=== PATIENT | female | born 1960 | race Caucasian/White ===

== ENCOUNTER 2022-03-23 13:51 | Outpatient (REF) | payer MEDICAID, SELFPAY ==
--- NOTE | 2022-03-23 13:30 | ENDOMET_PTH ---
PATIENT: Ninoska Conte LOC: [facility] U#:[id number] AGE/SX: 61/F ROOM: RE03/23/[address]: Marsha Henderson : 1960 BED: DIS: 03/23/2022 SPEC #: [id number] RECD: 03/23/22 17:53 STATUS: DANILO REQ #: [id number] ZO: 03/23/22 13:[address]: Marsha Henderson DEPT: Surgical Specimen RECD BY: Annel Tong Tissues: 1 - ENDOMETRIUM BX/ERMIAS Procedures: GROSS AND MICRO LEVEL 4 Comments: [id number]
== END 2022-03-23 13:52 | disposition home or self-care (01) ==
LOC: LBN 13:51
PROVIDERS: Visit Provider Obstetrics & Gynecology Gynecology
DX: N85.8 Other specified noninflammatory disorders of uterus (principal)
CPT/HCPCS: 88305

== ENCOUNTER 2024-09-23 05:53 | Day surgery (SDC) | payer MEDICAID, SELFPAY ==
[2024-09-23 06:30] VITALS: BP 184/71; PULSE 57; RESP 16; TEMP 36.5; O2SAT 98
[2024-09-23] MEDS: Lactated Ringers 1,000 ML 80 ML IV (06:45)
[2024-09-23 06:50] VITALS: BP 172/64
--- NOTE | 2024-09-23 07:07 | HPE_ITS ---
Date of service: 09/23/24 Time of Service: 07:07 Assessment and Plan Assessment and plan (1) Renal calculus, left: Status: Acute Assessment and plan: We will plan to do ureteroscopy and holmium laser lithotripsy of her identified stone. We may be able to address all of her stones in 1 setting, but we may need a staged procedure in which we placed a ureteral stent have her return to the OR to address all remaining stone fragments. History of Present Illness History of Present Illness Chief Complaint: Left kidney stone Narrative: This is a 63-year-old woman who has a history of a left-sided kidney stone. She was previously treated with ureteroscopy and holmium laser lithotripsy for a 14 x 8 mm stone. She had a stent placed following the initial surgery. I do not have access to her stone analysis during today's visit. She was then identified as having a residual 6 mm stone in the renal pelvis she presents now for ureteroscopy and holmium laser lithotripsy of her residual stone fragment. Review of Systems Narrative: No fevers or chills No vision change or dysphasia Diabetes. No thyroid dysfunction No shortness of breath, cough or hemoptysis No chest pain or palpitations No nausea, vomiting, hepatitis, ulcers, jaundice Vertigo. No seizures, strokes or peripheral neuropathy No bleeding disorders or anemia No gout PFSH All Active Problems Postoperative nausea (Acute) Pelvic pressure in female (Acute) Renal calculus, left (Acute) Urinary incontinence (Acute) Frequent UTI (Acute) Urinary urgency (Acute) Increased endometrial stripe thickness (Acute) Vertigo of central origin (Acute) Type 2 diabetes mellitus without complication (Acute) Shoulder joint pain (Acute) Pelvic and perineal pain (Acute) Obstructive sleep apnea syndrome (Chronic) Obesity (Chronic) Nasal congestion (Acute) Midline cystocele (Acute) Other [facility] (current) drug therapy (Acute) Lack of energy (Acute) Hypertensive disorder (Chronic) Chest pain (Acute) Anemia (Chronic) Abdominal pain (Acute) History of recurrent UTIs (Acute) Surgical History History of cholecystectomy Hx of colonoscopy Social History Smoking/Tobacco Use Status: Never Second Hand Exposure: Yes Smoking risk assessment performed?: Yes Alcohol Intake: former Drug use: Never Substance use type: does not use Household members: spouse and children Housing: house Number of Children: 6 number of grandchildren: 1 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 [employer] What is your relationship status?: Panel score (0-1 are the most socially isolated patients): 1 Seatbelt use: always Additional Social history: UTAP Female Reproductive History Menstrual Age of Menarche: 10 control method: none Menopause type: natural (2016) History History Para 6 Hx # Term Pregnancies Multiple births Hx # Pregnancies Ectopic pregnancies AB induced Hx Number of Living Children 6 AB spontaneous Meds Allergies and Home Medications Allergies Allergy/AdvReac Type Severity Reaction Status Date / Time No Known Allergies Allergy Verified 09/23/24 06:34 Home Medications ?Medication ?Instructions ?Recorded ?Confirmed ?Type beta carotene 30 mg capsule 30 mg PO DAILY 07/23/24 09/23/24 History cholecalciferol (vitamin D3) 50 100 mcg PO DAILY 07/23/24 09/23/24 History mcg (2,000 unit) capsule coenzyme Q10 75 mg capsule (Ultra 75 mg PO DAILY 07/23/24 09/23/24 History CoQ10) metformin 500 mg tablet 1,000 mg PO DAILY 07/23/24 09/23/24 History omeprazole 20 mg capsule,delayed 20 mg PO HS 07/23/24 09/23/24 History release fluticasone propionate 50 1 spray intranasal BID PRN 09/20/24 09/23/24 History mcg/actuation nasal spray,suspension (24 Hour Allergy Relief) semaglutide 3 mg tablet (Rybelsus) 3 mg PO DAILY 09/23/24 09/23/24 History Exam Const General: cooperative Neck Neck: supple Resp Effort & Inspection: normal respiratory effort Auscultation: clear to auscultation bilaterally Cardio Rate: regular rate Rhythm: regular rhythm GI Palpation: soft and no masses Neuro General: patient alert, patient awake and patient oriented x3 Results Last Vital Signs Temp 36.5 C 09/23/24 06:30 Pulse 57 L 09/23/24 06:30 Resp 16 09/23/24 06:30 BP 172/64 H 09/23/24 06:50 Pulse Ox 98 09/23/24 06:30
--- NOTE | 2024-09-23 07:24 | W.ANESPRE ---
General Info Date of Service Date Performed: 09/23/24 Height: 5 ft 6.5 in Weight: 93.5 kg Body Mass Index (BMI): 32.8 Surgical Procedure: Operation Date: 09/23/24 07:40 Proposed Procedure Side Surgeon p Cystoscopy/Laser/Retrograde/Ureteroscopy/Stone Manipulation/ Possible Stent Left Justus Gibson MD Meds Allergies and Home Medications Allergies Allergy/AdvReac Type Severity Reaction Status Date / Time No Known Allergies Allergy Verified 09/23/24 06:34 Home Medication ?Medication ?Instructions ?Recorded beta carotene 30 mg capsule 30 mg PO DAILY 07/23/24 cholecalciferol (vitamin D3) 50 100 mcg PO DAILY 07/23/24 mcg (2,000 unit) capsule coenzyme Q10 75 mg capsule (Ultra 75 mg PO DAILY 07/23/24 CoQ10) metformin 500 mg tablet 1,000 mg PO DAILY 07/23/24 omeprazole 20 mg capsule,delayed 20 mg PO HS 07/23/24 release fluticasone propionate 50 1 spray intranasal BID PRN 09/20/24 mcg/actuation nasal spray,suspension (24 Hour Allergy Relief) semaglutide 3 mg tablet (Rybelsus) 3 mg PO DAILY 09/23/24 Current Visit Medications: Current Medications Generic Name Dose Route Start Last Admin Trade Name Freq PRN Reason Stop Dose Admin Ringer's Solution 1,000 mls @ 80 mls/hr 09/23/24 06:00 09/23/24 06:45 IV 09/23/24 23:59 80 mls/hr INFUSION KATHY Administration Ciprofloxacin 400 mg in 200 mls @ 200 mls/hr 09/23/24 06:00 Cipro I.V. IVPB 09/23/24 23:59 PREOP KATHY IV Miscellaneous Supplies 1 each 09/23/24 06:00 Iv Access IV 09/23/24 23:59 DIRECTED KATHY Sodium Chloride 0 ml 09/23/24 06:00 Normal Saline Flush 10 Ml Syr IV 09/23/24 23:59 PRN PRN Sodium Chloride 0 ml 09/23/24 06:00 Normal Saline 10 Ml Vial IJ 09/23/24 23:59 DIRECTED PRN Sterile Water 0 ml 09/23/24 06:00 Water,Injection,Sterile 10 Ml Vial IJ 09/23/24 23:59 DIRECTED PRN PFSH Active Problems Active Problems: Problem Status Onset Code Postoperative nausea Acute R11.0, Z98.890 Pelvic pressure in female Acute R10.2 Renal calculus, left Acute N20.0 Urinary incontinence Acute R32 Frequent UTI Acute N39.0 Urinary urgency Acute R39.15 Increased endometrial stripe thickness Acute R93.89 Vertigo of central origin Acute H81.4 Type 2 diabetes mellitus without complication Acute E11.9 Shoulder joint pain Acute M25.519 Pelvic and perineal pain Acute R10.2 Obstructive sleep apnea syndrome Chronic G47.33 Obesity Chronic E66.9 Nasal congestion Acute R09.81 Midline cystocele Acute N81.11 Other [facility] (current) drug therapy Acute Z79.899 Lack of energy Acute R53.83 Hypertensive disorder Chronic I10 Chest pain Acute R07.9 Anemia Chronic D64.9 Abdominal pain Acute R10.9 History of recurrent UTIs Acute Z87.440 Surgical History Surgical History History of cholecystectomy Hx of colonoscopy Tobacco Smoking/Tobacco Use Status: Never Second hand exposure: Yes Alcohol Alcohol Intake: former Substance Use Substance use: Never Substance use type: does not use Prental History History Para 6 Hx # Term Pregnancies Multiple births Hx # Pregnancies Ectopic pregnancies AB induced Hx Number of Living Children 6 AB spontaneous Vital Signs and Lab Results Vital Signs Most Recent Vital Signs in EMR: Most Recent Vital Signs Temp Pulse Resp BP Pulse Ox 36.5 C 57 L 16 172/64 H 98 09/23/24 06:30 09/23/24 06:30 09/23/24 06:30 09/23/24 06:50 09/23/24 06:30 Point of Care Results Point of Care Results: Finger Stick Blood Glucose 155 09/23/24 06:50 Lab Results Blood Type / Crossmatch: No Data to Display Complete Blood Count: No Data to Display Complete Metabolic Panel: No Data to Display Liver Function Panel: No Data to Display Coagulation Panel: No Data to Display Cardiac Panel: No Data to Display Arterial Blood Gas: No Data to Display Venous Blood Gas: No Data to Display Pancreas Panel: No Data to Display Thyroid Panel: No Data to Display Infectious Disease: No Data to Display Blood Cultures: No Data to Display Toxicology Panel: No Data to Display Anesthesia Assessment and Plan Anesthesia History Personal History: PONV Family History: No Family History of Anesthesia Complications Exercise Tolerance Exercise Tolerance: Metabolic Equivalents>4 Pertinent Negatives Pertinent Negatives: No Symptoms of GERD (On Rx (Heartburn last night)) Cardiac & Pulmonary Exam Cardiac Exam: Normal S1/S2 Heart Sounds Pulmonary Exam: Clear Bilateral Breath Sounds Implantable Cardiac Device Does patient have a Pacemaker or an ICD?: No Airway Exam Known Difficult Airway: No Mallampati Class: 3 Mouth Opening: Narrow (< 3cm) Thyromental Distance: Greater than 3 cm Neck Range of Motion: Full ROM Neck Circumference: Thick Teeth Condition: Normal Dentition ASA Classification ASA Score: ASA 2 Emergency Case?: No NPO Status NPO Status: NPO Clears >2 hours, Solids >8 hours Anesthesia Plan Resuscitation Status: Full Code Anesthesia Technique: General Anesthesia Airway Planned: LMA Monitors Used: Standard Monitors
[2024-09-23 07:27] VITALS: BMI 32.8
[2024-09-23] MEDS: CIPROFLOXACIN 400 MG/200 ML BAG 200 MG IVPB (10:15)
== END 2024-09-23 05:54 | disposition home or self-care (01) ==
PROVIDERS: PCP Physician Assistant Medical; Visit Provider Urology
DX: N20.0 Calculus of kidney (principal); E11.9 Type 2 diabetes mellitus without complications; R32 Unspecified urinary incontinence; D64.9 Anemia, unspecified; I10 Essential (primary) hypertension; Z53.09 Procedure and treatment not carried out because of other contraindication
CPT/HCPCS: J0744; J1100; J2003; J2405; J2704

== ENCOUNTER 2024-09-26 06:08 | Day surgery (SDC) | payer MEDICAID, SELFPAY ==
[2024-09-26] VITALS (18 sets, daily range): BP systolic 104–170; BP diastolic 37–81; PULSE 53–70; RESP 8–26; TEMP 36.3–36.7; O2SAT 91–99; BMI 33.2
[2024-09-26] MEDS: Lactated Ringers 1,000 ML 80 ML IV (06:43)
--- NOTE | 2024-09-26 06:56 | W.PM.HP.N ---
Date of service: 09/26/24 Time of Service: 06:56 Assessment and Plan Assessment and plan (1) Renal calculus, left: Status: Acute Assessment and plan: We will move forward with cystoscopy, left retrograde pyelogram, left ureteroscopy and holmium laser lithotripsy of her stone. We discussed the possibility of ureteral injuries and strictures following the procedure. We also discussed the possibility of a staged procedure during which we return to the operating room to complete the lithotripsy and stone extraction if we are unable to deal with all of the stone in 1 surgical procedure. History of Present Illness History of Present Illness Chief Complaint: Left renal stone Narrative: This is a 63-year-old woman who has a history of a large left kidney stone. She was treated with ureteroscopy and holmium laser lithotripsy. Her initial stone was about 14 mm in size. It appears that she has a residual 6 mm fragment in the renal pelvis. She presents now for ureteroscopy and holmium laser lithotripsy of her stone. With her previous procedure, she has had stent discomfort. Review of Systems Narrative: No fevers or chills No vision change or dysphasia Diabetes. No thyroid dysfunction Sleep apnea. No hemoptysis No chest pain or palpitations Hx GERD. No hepatitis, ulcers, jaundice Hx vertigo. No seizures, strokes or peripheral neuropathy No bleeding disorders or anemia No gout PFSH All Active Problems Postoperative nausea (Acute) Pelvic pressure in female (Acute) Renal calculus, left (Acute) Urinary incontinence (Acute) Frequent UTI (Acute) Urinary urgency (Acute) Increased endometrial stripe thickness (Acute) Vertigo of central origin (Acute) Type 2 diabetes mellitus without complication (Acute) Shoulder joint pain (Acute) Pelvic and perineal pain (Acute) Obstructive sleep apnea syndrome (Chronic) Obesity (Chronic) Nasal congestion (Acute) Midline cystocele (Acute) Other half-way (current) drug therapy (Acute) Lack of energy (Acute) Hypertensive disorder (Chronic) Chest pain (Acute) Anemia (Chronic) Abdominal pain (Acute) History of recurrent UTIs (Acute) Surgical History History of cholecystectomy Hx of colonoscopy Social History Smoking/Tobacco Use Status: Never Second Hand Exposure: Yes Smoking risk assessment performed?: Yes Alcohol Intake: former Drug use: Never Substance use type: does not use Household members: spouse and children Housing: house Number of Children: 6 number of grandchildren: 1 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Instructions ?Recorded ?Confirmed ?Type beta carotene 30 mg capsule 30 mg PO DAILY 07/23/24 09/26/24 History cholecalciferol (vitamin D3) 50 100 mcg PO DAILY 07/23/24 09/26/24 History mcg (2,000 unit) capsule coenzyme Q10 75 mg capsule (Ultra 75 mg PO DAILY 07/23/24 09/26/24 History CoQ10) metformin 500 mg tablet 1,000 mg PO DAILY 07/23/24 09/26/24 History omeprazole 20 mg capsule,delayed 20 mg PO HS 07/23/24 09/26/24 History release fluticasone propionate 50 1 spray intranasal BID PRN 09/20/24 09/26/24 History mcg/actuation nasal spray,suspension (24 Hour Allergy Relief) semaglutide 3 mg tablet (Rybelsus) 3 mg PO DAILY 09/23/24 09/24/24 History Exam Const General: cooperative and not in acute distress Neck Neck: supple Resp Effort & Inspection: normal respiratory effort Auscultation: clear to auscultation bilaterally Cardio Rate: regular rate Rhythm: regular rhythm GI Inspection: normal to inspection Palpation: soft and no masses Neuro General: patient alert, patient awake and patient oriented x3 Results Last Vital Signs Temp 36.3 C L 09/26/24 06:22 Pulse 55 L 09/26/24 06:22 Resp 17 09/26/24 06:22 BP 170/81 H 09/26/24 06:22 Pulse Ox 97 09/26/24 06:22 Time Spent Time spent with Patient: <40 minutes Time was spent: other
--- NOTE | 2024-09-26 07:23 | W.ANESPRE ---
General Info Date of Service Date Performed: 09/26/24 Height: 5 ft 6 in Weight: 93.4 kg Body Mass Index (BMI): 33.2 Surgical Procedure: Operation Date: 09/26/24 07:40 Proposed Procedure Side Surgeon p Cystoscopy/Laser/Retrograde/Ureteroscopy, stone manipulation, ?stent Left Justus Gibson MD Meds Allergies and Home Medications Allergies Allergy/AdvReac Type Severity Reaction Status Date / Time No Known Allergies Allergy Verified 09/24/24 12:27 Home Medication ?Medication ?Instructions ?Recorded beta carotene 30 mg capsule 30 mg PO DAILY 07/23/24 cholecalciferol (vitamin D3) 50 100 mcg PO DAILY 07/23/24 mcg (2,000 unit) capsule coenzyme Q10 75 mg capsule (Ultra 75 mg PO DAILY 07/23/24 CoQ10) metformin 500 mg tablet 1,000 mg PO DAILY 07/23/24 omeprazole 20 mg capsule,delayed 20 mg PO HS 07/23/24 release fluticasone propionate 50 1 spray intranasal BID PRN 09/20/24 mcg/actuation nasal spray,suspension (24 Hour Allergy Relief) semaglutide 3 mg tablet (Rybelsus) 3 mg PO DAILY 09/23/24 Current Visit Medications: Current Medications Generic Name Dose Route Start Last Admin Trade Name Freq PRN Reason Stop Dose Admin Ringer's Solution 1,000 mls @ 80 mls/hr 09/26/24 06:00 09/26/24 06:43 IV 09/26/24 23:59 80 mls/hr INFUSION KATHY Administration Ciprofloxacin 400 mg in 200 mls @ 200 mls/hr 09/26/24 06:00 Cipro I.V. IVPB 09/26/24 23:59 PREOP KATHY IV Miscellaneous Supplies 1 each 09/26/24 06:00 Iv Access IV 09/26/24 23:59 DIRECTED KATHY Sodium Chloride 0 ml 09/26/24 06:00 Normal Saline Flush 10 Ml Syr IV 09/26/24 23:59 PRN PRN Sodium Chloride 0 ml 09/26/24 06:00 Normal Saline 10 Ml Vial IJ 09/26/24 23:59 DIRECTED PRN Sterile Water 0 ml 09/26/24 06:00 Water,Injection,Sterile 10 Ml Vial IJ 09/26/24 23:59 DIRECTED PRN PFSH Active Problems Active Problems: Problem Status Onset Code Postoperative nausea Acute R11.0, Z98.890 Pelvic pressure in female Acute R10.2 Renal calculus, left Acute N20.0 Urinary incontinence Acute R32 Frequent UTI Acute N39.0 Urinary urgency Acute R39.15 Increased endometrial stripe thickness Acute R93.89 Vertigo of central origin Acute H81.4 Type 2 diabetes mellitus without complication Acute E11.9 Shoulder joint pain Acute M25.519 Pelvic and perineal pain Acute R10.2 Obstructive sleep apnea syndrome Chronic G47.33 Obesity Chronic E66.9 Nasal congestion Acute R09.81 Midline cystocele Acute N81.11 Other long term care phlebotomist (current) drug therapy Acute Z79.899 Lack of energy Acute R53.83 Hypertensive disorder Chronic I10 Chest pain Acute R07.9 Anemia Chronic D64.9 Abdominal pain Acute R10.9 History of recurrent UTIs Acute Z87.440 Surgical History Surgical History History of cholecystectomy Hx of colonoscopy Tobacco Smoking/Tobacco Use Status: Never Second hand exposure: Yes Alcohol Alcohol Intake: former Substance Use Substance use: Never Substance use type: does not use Prental History History Para 6 Hx # Term Pregnancies Multiple births Hx # Pregnancies Ectopic pregnancies AB induced Hx Number of Living Children 6 AB spontaneous Vital Signs and Lab Results Vital Signs Most Recent Vital Signs in EMR: Most Recent Vital Signs Temp Pulse Resp BP Pulse Ox 36.3 C L 55 L 17 170/81 H 97 09/26/24 06:22 09/26/24 06:22 09/26/24 06:22 09/26/24 06:22 09/26/24 06:22 Point of Care Results Point of Care Results: Finger Stick Blood Glucose 160 09/26/24 06:28 Lab Results Blood Type / Crossmatch: No Data to Display Complete Blood Count: No Data to Display Complete Metabolic Panel: No Data to Display Liver Function Panel: No Data to Display Coagulation Panel: No Data to Display Cardiac Panel: No Data to Display Arterial Blood Gas: No Data to Display Venous Blood Gas: No Data to Display Pancreas Panel: No Data to Display Thyroid Panel: No Data to Display Infectious Disease: No Data to Display Blood Cultures: No Data to Display Toxicology Panel: No Data to Display Anesthesia Assessment and Plan Anesthesia History Personal History: PONV Family History: No Family History of Anesthesia Complications Exercise Tolerance Exercise Tolerance: Metabolic Equivalents>4 Pertinent Negatives Pertinent Negatives: No Symptoms of GERD Cardiac & Pulmonary Exam Cardiac Exam: Normal S1/S2 Heart Sounds Pulmonary Exam: Clear Bilateral Breath Sounds Implantable Cardiac Device Does patient have a Pacemaker or an ICD?: No Airway Exam Known Difficult Airway: No Mallampati Class: 3 Mouth Opening: Narrow (< 3cm) Thyromental Distance: Greater than 3 cm Neck Range of Motion: Full ROM Neck Circumference: Thick Teeth Condition: Normal Dentition ASA Classification ASA Score: ASA 2 Emergency Case?: No NPO Status NPO Status: NPO Clears >2 hours, Solids >8 hours Anesthesia Plan Resuscitation Status: Full Code Anesthesia Technique: General Anesthesia Airway Planned: Endotracheal Tube Monitors Used: Standard Monitors
[2024-09-26] MEDS: CIPROFLOXACIN 400 MG/200 ML BAG 200 MG IVPB (07:45)
[2024-09-26] MEDS: Lidocaine 2% Jelly 11 ML SYR (08:25)
[2024-09-26] MEDS: Omnipaque 300 MG/ML 50 ML BTL (08:26)
--- NOTE | 2024-09-26 08:35 | DI.RAD_ITS ---
Exam(s) XR RETROGRADE IN OR EXAM: XR RETROGRADE IN OR CLINICAL HISTORY: Renal calculus, left TECHNIQUE: 2D and realtime digital imaging was performed. CONTRAST MATERIAL: Refer to procedure report. COMPARISON: CT CT RENAL COLIC from 07/22/2024 FINDINGS: Fluoroscopy was provided for Dr. Gibson during the performance of a retrograde evaluation of the olga lidia l collecting system. Please refer to the procedure report for complete details. Ka,r=10.6 mGy IMPRESSION: RADIATION DOSE DELIVERED: 0.0 0.0 0
--- NOTE | 2024-09-26 08:36 | W.PM.DSUDISC ---
Date of service: 09/26/24 Discharge Plan Disposition Patient Disposition: Home Condition: Stable Discharge Details Reason For Visit: kidney stone Attending Provider: Justus Gibson Primary Care Provider: Hetal Vora Home Meds and New Rx's Prescriptions: No Action metformin 500 mg tablet 1,000 mg PO DAILY omeprazole 20 mg capsule,delayed release(DR/EC) 20 mg PO HS Ultra CoQ10 75 mg capsule 75 mg PO DAILY cholecalciferol (vitamin D3) 50 mcg (2,000 unit) capsule 100 mcg PO DAILY beta carotene 30 mg capsule 30 mg PO DAILY fluticasone propionate [24 Hour Allergy Relief] 50 mcg/actuation spray,suspension 1 spray intranasal BID PRN Rx Instructions: administer into each nostril Rybelsus 3 mg tablet 3 mg PO DAILY Patient Comments: 09/23/24 Pt has NOT started Rx Instructions: TAKE ONE TABLET BY MOUTH EVERY DAY AT LEAST 30 MINUTES BEFORE FIRST FOOD, BEVERAGE OR OTHER ORAL MEDS Discharge Instructions Additional Instructions: no need to strain urine my office will contact pt to arrange cystoscopy/stent removal and repeat ureteroscopy to insure all stone fragments have been removed Stand Alone Forms: Anesthesia Discharge Inst., [facility] Breanna Simon ([facility]) Referrals: Justus Gibson MD [ [facility] STAFF PHYSICIAN] - Activity:: Activity as Tolerated Shower/Bathe:: 24 hours Diet:: As Tolerated Discharge Orders Discharge Orders: Discharge Order (Routine); Ordered 09/26/24 Ordered By: Justus Gibson DS: Diagnosis Discharge Diagnosis (1) Renal calculus, left: Status: Acute
--- NOTE | 2024-09-26 08:38 | W.PM.OP ---
Operative Note Operative Note PRE-OP DIAGNOSIS: left kidney stone POST-OP DIAGNOSIS: same PROCEDURE: cystoscopy, left retrograde pyelogram, left flexible ureteroscopy with holmium laser lithotripsy, stone fragment extraction, insert left ureteral stent SURGEON: Justus Gibson ANESTHESIA TYPE: Local By Surgeon and General LMA/ETT Refer to Anesthesia Record ESTIMATED BLOOD LOSS: 5 PATHOLOGY: other (stones for chemical analysis) COMPLICATIONS: None Patient was transported to: PACU Patient's condition: stable Implants: 4.8 [place]gu[place]an by 22 to 30 cm left ureteral stent Indications: This is a 63-year-old woman who has a history of a 14 mm stone previously identified in the left kidney. She had been treated with flexible ureteroscopy and holmium laser lithotripsy. A 6 mm stone fragment was then identified. The stone was not obstructing, but the patient expressed an interest in having the stone treated to prevent future issues. She presents now for ureteroscopy and holmium laser lithotripsy of her stone. Findings: stone in left lower pole calyx Procedure Description: The patient was given preoperative IV antibiotics and brought to the operating room on 09/26/2024. After successful induction of general anesthesia, she was placed in the dorsal lithotomy position. Her genitalia was prepped and draped. Preoperative KUB demonstrated a radiopaque finding in the region of the left kidney. A 22 [place]gu[place]an rigid cystoscope was then passed through the urethra into the bladder. The bladder was inspected with 30 degree lens. Both ureteral orifices appeared normal with no blood coming from either side. The left orifice was cannulated with a 5 Anguillan access catheter. Retrograde pyelogram was obtained by injecting Omnipaque through the access catheter under fluoroscopic guidance. The previously identified radiopaque stone was outlined in one of the lower pole calyces. I then passed a guidewire through the lumen of the access catheter and removed the catheter leaving the wire in place. I passed a dual-lumen catheter over the wire and positioned a second wire. We chose one of the wires as a safety wire and the other as a working wire. I passed a ureteral access sheath over the working wire leaving the safety wire in place. I then passed the flexible ureteroscope through the lumen of the access sheath and inspected the calyces. We did identify a yellow-tinged stone in one of the lower pole calyces. I treated the stone with a 272 ?m holmium laser fiber. We were able to fragment the stone into more manageable sized pieces. I then utilized a 0 tip stone basket to grasp the stone fragments and removed them one by one. Each of the stone fragments was sent to pathology for permanent section. At the completion of the procedure, I did not identify any residual large stone fragments, but there was quite a bit of dust making visibility difficult. We elected to place a ureteral stent and return to the operating room in a week or 2 to ensure that all the stone fragments have been cleared. I then removed the flexible ureteroscope and the access sheath. I passed a 4.8 Anguillan variable length stent over the safety wire. We position the stent with the proximal end in the renal pelvis and the distal end in the bladder. The positioning of the stent was confirmed both fluoroscopically and cystoscopically. The patient tolerated this procedure well with no complications. She was taken to the recovery room in stable condition. Date of Procedure: 09/26/24
[2024-09-26] MEDS: Phenazopyridine 200 MG TAB PO (09:24)
--- NOTE | 2024-09-26 09:43 | W.ANESPOSTOP ---
Postoperative Evaluation Date, Time and Location Date Performed: 09/26/24 Time Performed: 09:43 Patient Location: Day Surgery Unit Vital Signs Most Recent Imported Vital Signs: Most Recent Vital Signs Temp Pulse Resp BP Pulse Ox 36.3 C L 53 L 18 118/67 99 09/26/24 09:21 09/26/24 09:21 09/26/24 09:21 09/26/24 09:21 09/26/24 09:21 Pain Score Most Recent Pain Score: Most Recent Pain Score Pain Level 0 09/26/24 09:21 Assessment Mental Status: Awake (Alert & Oriented to Patient Baseline) Airway and Respiratory Function: Patent airway with normal (patient baseline) respiratory exam Cardiovascular Function: Hemodynamically Stable Hydration Status: Adequately Hydrated Nausea & Vomiting: No Nausea or Vomiting Pain: Pt. Denies Any Pain Peripheral Nerve Block: Patient did not receive a nerve block
[2024-10-02 11:09] LABS: Source: Left Kidney
== END 2024-09-26 10:34 | disposition home or self-care (01) ==
PROVIDERS: PCP Physician Assistant Medical; Visit Provider Urology
PROC: (CPT 52356; principal; 2024-09-26 07:30)
DX: N20.0 Calculus of kidney (principal); E11.9 Type 2 diabetes mellitus without complications; G47.33 Obstructive sleep apnea (adult) (pediatric); I10 Essential (primary) hypertension
CPT/HCPCS: 52356; 74420; 82365; J0131; J0744; J1100; J1885; J2003; J2250; J2405; J2704; J3010; Q9967

== ENCOUNTER 2024-10-14 06:54 | Day surgery (SDC) | payer MEDICARE, SELFPAY ==
[2024-10-14] VITALS (12 sets, daily range): BP systolic 102–158; BP diastolic 43–78; PULSE 50–78; RESP 13–28; TEMP 36.2–36.6; O2SAT 93–98; BMI 33.2
[2024-10-14] MEDS: Ciprofloxacin 500 MG TAB PO (07:42)
[2024-10-14] MEDS: Lactated Ringers 1,000 ML 80 ML IV (07:52)
--- NOTE | 2024-10-14 07:58 | ANES.PREOP_ITS ---
General Info Date of Service Date Performed: 10/14/24 Height: 5 ft 6 in Weight: 93.4 kg Body Mass Index (BMI): 33.2 Surgical Procedure: Operation Date: 10/14/24 09:10 Proposed Procedure Side Surgeon p Cystoscopy/remove ureteral stent/Retrograde/flexible Ureteroscopy/? stone fragment extraction Left Justus Gibson MD Meds Allergies and Home Medications Allergies Allergy/AdvReac Type Severity Reaction Status Date / Time No Known Allergies Allergy Verified 10/11/24 11:12 Home Medication ?Medication ?Instructions ?Recorded beta carotene 30 mg capsule 30 mg PO DAILY 07/23/24 cholecalciferol (vitamin D3) 50 100 mcg PO DAILY 07/23/24 mcg (2,000 unit) capsule coenzyme Q10 75 mg capsule (Ultra 75 mg PO DAILY 07/23/24 CoQ10) metformin 500 mg tablet 1,000 mg PO DAILY 07/23/24 omeprazole 20 mg capsule,delayed 20 mg PO HS 07/23/24 release fluticasone propionate 50 1 spray intranasal BID PRN 09/20/24 mcg/actuation nasal spray,suspension (24 Hour Allergy Relief) semaglutide 3 mg tablet (Rybelsus) 3 mg PO DAILY 09/23/24 Current Visit Medications: Current Medications Generic Name Dose Route Start Last Admin Trade Name Freq PRN Reason Stop Dose Admin Ciprofloxacin HCl 500 mg 10/14/24 06:00 10/14/24 07:42 Ciprofloxacin 500 Mg Tab PO 10/14/24 23:59 500 mg PREOP KATHY Administration Ringer's Solution 1,000 mls @ 80 mls/hr 10/14/24 06:00 10/14/24 07:52 IV 10/14/24 23:59 80 mls/hr INFUSION KATHY Administration IV Miscellaneous Supplies 1 each 10/14/24 06:00 Iv Access IV 10/14/24 23:59 DIRECTED KATHY Sodium Chloride 0 ml 10/14/24 06:00 Normal Saline Flush 10 Ml Syr IV 10/14/24 23:59 PRN PRN Sodium Chloride 0 ml 10/14/24 06:00 Normal Saline 10 Ml Vial IJ 10/14/24 23:59 DIRECTED PRN Sterile Water 0 ml 10/14/24 06:00 Water,Injection,Sterile 10 Ml Vial IJ 10/14/24 23:59 DIRECTED PRN PFSH Active Problems Active Problems: Problem Status Onset Code Postoperative nausea Acute R11.0, Z98.890 Pelvic pressure in female Acute R10.2 Renal calculus, left Acute N20.0 Urinary incontinence Acute R32 Frequent UTI Acute N39.0 Urinary urgency Acute R39.15 Increased endometrial stripe thickness Acute R93.89 Vertigo of central origin Acute H81.4 Type 2 diabetes mellitus without complication Acute E11.9 Shoulder joint pain Acute M25.519 Pelvic and perineal pain Acute R10.2 Obstructive sleep apnea syndrome Chronic G47.33 Obesity Chronic E66.9 Nasal congestion Acute R09.81 Midline cystocele Acute N81.11 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 Acute Z79.899 Lack of energy Acute R53.83 Hypertensive disorder Chronic I10 Chest pain Acute R07.9 Anemia Chronic D64.9 Abdominal pain Acute R10.9 History of recurrent UTIs Acute Z87.440 Medical History Medical History Comments:: Not using CPAP Surgical History Surgical History History of cholecystectomy Hx of colonoscopy Tobacco Smoking/Tobacco Use Status: Never Second hand exposure: Yes Alcohol Alcohol Intake: former Substance Use Substance use: Never Substance use type: does not use Prental History History Para 6 Hx # Term Pregnancies Multiple births Hx # Pregnancies Ectopic pregnancies AB induced Hx Number of Living Children 6 AB spontaneous Vital Signs and Lab Results Vital Signs Most Recent Vital Signs in EMR: Most Recent Vital Signs Temp Pulse Resp BP Pulse Ox 36.4 C L 57 L 16 158/78 H 98 10/14/24 07:27 10/14/24 07:27 10/14/24 07:27 10/14/24 07:27 10/14/24 07:27 Point of Care Results Point of Care Results: Finger Stick Blood Glucose 155 10/14/24 07:52 Lab Results Blood Type / Crossmatch: No Data to Display Complete Blood Count: No Data to Display Complete Metabolic Panel: No Data to Display Liver Function Panel: No Data to Display Coagulation Panel: No Data to Display Cardiac Panel: No Data to Display Arterial Blood Gas: No Data to Display Venous Blood Gas: No Data to Display Pancreas Panel: No Data to Display Thyroid Panel: No Data to Display Infectious Disease: No Data to Display Blood Cultures: No Data to Display Toxicology Panel: No Data to Display Anesthesia Assessment and Plan Anesthesia History Personal History: PONV Family History: No Family History of Anesthesia Complications Exercise Tolerance Exercise Tolerance: Metabolic Equivalents>4 Pertinent Negatives Pertinent Negatives: No Symptoms of GERD Cardiac & Pulmonary Exam Cardiac Exam: Normal S1/S2 Heart Sounds Pulmonary Exam: Clear Bilateral Breath Sounds Implantable Cardiac Device Does patient have a Pacemaker or an ICD?: No Airway Exam Known Difficult Airway: No Mallampati Class: 3 Mouth Opening: Narrow (< 3cm) Thyromental Distance: Greater than 3 cm Neck Range of Motion: Full ROM Neck Circumference: Thick Teeth Condition: Normal Dentition ASA Classification ASA Score: ASA 2 Emergency Case?: No NPO Status NPO Status: NPO Clears >2 hours, Solids >8 hours Anesthesia Plan Resuscitation Status: Full Code Anesthesia Technique: General Anesthesia Airway Planned: LMA Monitors Used: Standard Monitors
--- NOTE | 2024-10-14 09:06 | W.PM.HP.N ---
Date of service: 10/14/24 Time of Service: 09:06 Assessment and Plan Assessment and plan (1) Renal calculus, left: Status: Acute Assessment and plan: We will remove her ureteral stent and repeat ureteroscopy to ensure that all stone fragments have been addressed. History of Present Illness History of Present Illness Chief Complaint: kidney stone Narrative: This is a 64-year-old woman who has a history of kidney stones. She had undergone ureteroscopy and holmium laser lithotripsy of a large left-sided kidney stone. She was not having renal colic at the time, but there was concern that the stone may be associated with recurrent UTIs. She had a 6 mm residual stone fragment that became symptomatic. We did ureteroscopy, holmium laser lithotripsy of the stone and placed a ureteral stent. She comes in now to have her stent removed and to ensure that all stone fragments have been cleared. Review of Systems Narrative: No fevers or chills No vision change or dysphasia Diabetes. No thyroid Sleep apnea. No hemoptysis No chest pain or palpitations No nausea, vomiting, hepatitis, ulcers, jaundice, diarrhea or constipation No seizures, strokes or peripheral neuropathy No bleeding disorders or anemia No gout PFSH All Active Problems Postoperative nausea (Acute) Pelvic pressure in female (Acute) Renal calculus, left (Acute) Urinary incontinence (Acute) Frequent UTI (Acute) Urinary urgency (Acute) Increased endometrial stripe thickness (Acute) Vertigo of central origin (Acute) Type 2 diabetes mellitus without complication (Acute) Shoulder joint pain (Acute) Pelvic and perineal pain (Acute) Obstructive sleep apnea syndrome (Chronic) Obesity (Chronic) Nasal congestion (Acute) Midline cystocele (Acute) Other mcc (current) drug therapy (Acute) Lack of energy (Acute) Hypertensive disorder (Chronic) Chest pain (Acute) Anemia (Chronic) Abdominal pain (Acute) History of recurrent UTIs (Acute) Surgical History History of cholecystectomy Hx of colonoscopy Social History Smoking/Tobacco Use Status: Never Second Hand Exposure: Yes Smoking risk assessment performed?: Yes Alcohol Intake: former Drug use: Never Substance use type: does not use Household members: spouse and children Housing: house Number of Children: 6 number of grandchildren: 1 current occupation: Technician [employer] What is your relationship status?: Panel score (0-1 are the most socially isolated patients): 1 Seatbelt use: always Do you feel safe at home: Yes Do you feel safe in your relationship?: Yes Additional Social history: UTAP Female Reproductive History Menstrual Age of Menarche: 10 control method: none Menopause type: natural (2016) History History Para 6 Hx # Term Pregnancies Multiple births Hx # Pregnancies Ectopic pregnancies AB induced Hx Number of Living Children 6 AB spontaneous Meds Allergies and Home Medications Allergies Allergy/AdvReac Type Severity Reaction Status Date / Time No Known Allergies Allergy Verified 10/11/24 11:12 Home Medications ?Medication ?Instructions ?Recorded ?Confirmed ?Type beta carotene 30 mg capsule 30 mg PO DAILY 07/23/24 10/11/24 History cholecalciferol (vitamin D3) 50 100 mcg PO DAILY 07/23/24 10/11/24 History mcg (2,000 unit) capsule coenzyme Q10 75 mg capsule (Ultra 75 mg PO DAILY 07/23/24 10/11/24 History CoQ10) metformin 500 mg tablet 1,000 mg PO DAILY 07/23/24 10/11/24 History omeprazole 20 mg capsule,delayed 20 mg PO HS 07/23/24 10/11/24 History release fluticasone propionate 50 1 spray intranasal BID PRN 09/20/24 10/11/24 History mcg/actuation nasal spray,suspension (24 Hour Allergy Relief) semaglutide 3 mg tablet (Rybelsus) 3 mg PO DAILY 09/23/24 10/11/24 History Exam Const General: cooperative Neck Neck: supple Resp Effort & Inspection: normal respiratory effort Auscultation: clear to auscultation bilaterally Cardio Rate: regular rate Rhythm: regular rhythm GI Palpation: soft Neuro General: patient alert, patient awake and patient oriented x3 Results Last Vital Signs Temp 36.4 C L 10/14/24 07:27 Pulse 57 L 10/14/24 07:27 Resp 16 10/14/24 07:27 BP 158/78 H 10/14/24 07:27 Pulse Ox 98 10/14/24 07:27 Time Spent Time spent with Patient: <40 minutes Time was spent: other
[2024-10-14] MEDS: Lidocaine 2% Jelly 6 ML SYR (10:04)
[2024-10-14] MEDS: Omnipaque 300 MG/ML 50 ML BTL (10:04)
--- NOTE | 2024-10-14 10:10 | W.PM.DSUDISC ---
Date of service: 10/14/24 Discharge Plan Disposition Patient Disposition: Home Condition: Stable Discharge Details Reason For Visit: ureteroscopy Attending Provider: Justus Gibson Primary Care Provider: Hetal Vora Home Meds and New Rx's Prescriptions: No Action metformin 500 mg tablet 1,000 mg PO DAILY omeprazole 20 mg capsule,delayed release(DR/EC) 20 mg PO HS Ultra CoQ10 75 mg capsule 75 mg PO DAILY cholecalciferol (vitamin D3) 50 mcg (2,000 unit) capsule 100 mcg PO DAILY beta carotene 30 mg capsule 30 mg PO DAILY fluticasone propionate [24 Hour Allergy Relief] 50 mcg/actuation spray,suspension 1 spray intranasal BID PRN Rx Instructions: administer into each nostril Rybelsus 3 mg tablet 3 mg PO DAILY Patient Comments: 09/23/24 Pt has NOT started Rx Instructions: TAKE ONE TABLET BY MOUTH EVERY DAY AT LEAST 30 MINUTES BEFORE FIRST FOOD, BEVERAGE OR OTHER ORAL MEDS Discharge Instructions Additional Instructions: No need to strain urine Followup visit in 6 to 8 weeks with a renal US done prior to the visit. The ultrasound can either be done at [facility] or at [facility] depending on patient preference Activity:: Activity as Tolerated Shower/Bathe:: 24 hours Diet:: As Tolerated Discharge Orders Discharge Orders: Discharge Order (Routine); Ordered 10/14/24 Ordered By: Justus Gibson DS: Diagnosis Discharge Diagnosis (1) Renal calculus, left: Status: Acute
--- NOTE | 2024-10-14 10:12 | ROE_ITS ---
Operative Note Operative Note PRE-OP DIAGNOSIS: Left kidney stone POST-OP DIAGNOSIS: same PROCEDURE: cystoscopy, remove left ureteral stent, left retrograde pyelogram, left flexible ureteroscopy SURGEON: Justus Gibson ANESTHESIA TYPE: Local By Surgeon and General LMA/ETT Refer to Anesthesia Record ESTIMATED BLOOD LOSS: 5 PATHOLOGY: none sent COMPLICATIONS: None Patient was transported to: PACU Patient's condition: stable Implants: none Indications: This is a 64-year-old woman who has a history of a symptomatic left kidney stone. She was treated with ureteroscopy and holmium laser lithotripsy. There was a 6 mm stone that remained in the renal pelvis. While the 6 mm stone was not symptomatic, she requested treatment. I performed ureteroscopy with holmium laser lithotripsy and stone extraction. While using dusting settings on the ureteroscope, I was not completely certain that her stone fragments had been removed. We left a ureteral stent and she returns now for stent removal and repeat ureteroscopy to ensure all stone fragments had been dealt with Findings: No residual large stone fragments in the left kidney Procedure Description: The patient was given antibiotics and brought to the operating room on 10/14/2024. After successful induction of general anesthesia, she was placed in the dorsal lithotomy position. Her genitalia was prepped and draped. 2% Xylocaine jelly was then instilled into the urethra. A 22 [place]bourg[place] rigid cystoscope was passed through the urethra into the bladder. The bladder was inspected with the 30 degree lens. The right ureteral orifice appeared normal. A stent could be seen protruding from the left ureteral orifice. I grasped the stent with alligator forceps and brought the stent out to the level of the urethral meatus. I then passed a guidewire through the lumen of the stent and remove the stent in its entirety. I passed a dual-lumen catheter over the wire and injected Omnipaque through the second port of the dual-lumen catheter. This allowed me to outline the renal calyces. I passed a second guidewire through the dual-lumen catheter and removed the catheter. We chose one of the wires as a working wire and the other as a safety wire. I passed a ureteral access sheath over the working wire leaving the safety wire in place. I then passed the flexible ureteroscope through the lumen of the access sheath and inspected each of the calyces outlined on retrograde pyelogram. A few very small stone fragments were identified, but there was no significant stone burden remaining. The scope was then room removed. I inspected the ureter as I withdrew the scope and identified no evidence of ureteral injury. The patient tolerated the procedure well with no complications. She was taken to the recovery room in stable condition. Date of Procedure: 10/14/24
--- NOTE | 2024-10-14 10:12 | DI.RAD_ITS ---
Exam(s) XR RETROGRADE IN OR EXAM: XR RETROGRADE IN OR CLINICAL HISTORY: Renal calculus, left TECHNIQUE: 2D and realtime digital imaging was performed. CONTRAST MATERIAL: Refer to procedure report. COMPARISON: No exams were available for comparison FINDINGS: Fluoroscopy was provided for Dr. Gibson during the performance of a retrograde evaluation of the olga lidia l collecting system. Please refer to the procedure report for complete details. Ka,r=3.33 mGy IMPRESSION: RADIATION DOSE DELIVERED: 0.0 0.0 0
--- NOTE | 2024-10-14 11:27 | W.ANESPOSTOP ---
Postoperative Evaluation Date, Time and Location Date Performed: 10/14/24 Time Performed: 11:28 Patient Location: Day Surgery Unit Vital Signs Most Recent Imported Vital Signs: Most Recent Vital Signs Temp Pulse Resp BP Pulse Ox 36.2 C L 50 L 16 146/63 H 96 10/14/24 11:19 10/14/24 11:19 10/14/24 11:19 10/14/24 11:19 10/14/24 11:19 Pain Score Most Recent Pain Score: Most Recent Pain Score Pain Level 0 10/14/24 11:19 Assessment Mental Status: Awake (Alert & Oriented to Patient Baseline) Airway and Respiratory Function: Patent airway with normal (patient baseline) respiratory exam Cardiovascular Function: Hemodynamically Stable Hydration Status: Adequately Hydrated Nausea & Vomiting: No Nausea or Vomiting Pain: Pt. Denies Any Pain Peripheral Nerve Block: Patient did not receive a nerve block
== END 2024-10-14 11:40 | disposition home or self-care (01) ==
PROVIDERS: PCP Physician Assistant Medical; Visit Provider Urology
PROC: (CPT 52310; principal; 2024-10-14 09:00)
DX: Z46.6 Encounter for fitting and adjustment of urinary device (principal); G47.33 Obstructive sleep apnea (adult) (pediatric); E66.9 Obesity, unspecified; E11.9 Type 2 diabetes mellitus without complications; Z79.84 Long term (current) use of oral hypoglycemic drugs
CPT/HCPCS: 52310; 74420; J1100; J1885; J2003; J2250; J2405; J2704; Q9967

== ENCOUNTER → 2025-01-06 14:44 | Outpatient (BNVA) | payer MEDICARE, MEDICAID, SELFPAY | PROVIDERS: Visit Provider Urology | DX: N20.0 Calculus of kidney (principal); Z98.890 Other specified postprocedural states | CPT/HCPCS: 99213 ==